=== PATIENT | male | born 1980 | race Caucasian/White ===

== ENCOUNTER 2017-06-20 19:16 | Emergency (ER) | payer MEDICAID ==
[~2017-06-20] VITALS: Ht 182.8 cm; Wt 79.4 kg
[~2017-06-20 19:16] MED LIST: AMOXICILLIN500 M2 PO; ANAPROX DS550 MG PO; BACTRIM DS 8001 TA1 PO; BENADRYL50 MG PO; CEPHALEXIN500 M1 PO; CIPRO500 MG PO; CLEOCIN150 MG PO; CLINDAMYCIN HC300 MG PO; HYDROCODONE BIT1 T11 PO; MEDROL DOSEPAK4 MG PO; Motrin,Rufen800 MG PO; NAPROSYN500 MG PO; NORCO 5-325 TA1 EACH PO; TRAMADOL HCL50 MG PO; ULTRAM50 MG PO; VICODIN ES 7501 TAB PO; VOLTAREN50 M1 PO
[2017-06-20 20:05] LABS: HEMATOCRIT 39.5 % (42.0-52.0); HEMOGLOBIN 13.6 g/dl (14.0-18.0); MEAN CELL VOLUME 91.9 fl (80.0-94.0); MEAN CORPUSCULAR HGB 31.6 pg (27.0-31.0); MEAN CORPUSCULAR HGB CONC 34.4 g/dl (33.0-37.0); MEAN PLATELET VOLUME 9.2 fl (9.6-12.3); PLATELET COUNT AUTOMATED 249 10*3/uL (130-400); RED CELL DISTRI WIDTH 11.7 % (0-14.5); WHITE BLOOD COUNT 25.1 10*3/uL (4.8-10.8)
[2017-06-20 20:20] LABS: ALBUMIN 3.7 gm/dl (3.1-4.5); ALKALINE PHOSPHATASE 88 U/L (45-117); BILIRUBIN, TOTAL 0.5 mg/dl (0.2-1.0); BUN 13 mg/dl (7-24); CARBON DIOXIDE 25 mmol/L (21-32); CHLORIDE 98 mmol/L (98-107); EST GLOM FILT AFRICAN AMERICAN > 60 ml/min; GLUCOSE 142 mg/dL (65-99); POTASSIUM 3.8 mmol/L (3.5-5.1); SGOT/AST 14 IU/L (3-35); SGPT/ALT 15 U/L (12-78); SODIUM 132 mmol/L (136-145); TOTAL PROTEIN 8.3 gm/dL (6.4-8.2)
[2017-06-20 20:29] LABS: BASOPHIL # 0.3 10*3/uL (0-0.1); BASOPHILS 1 % (0-1); LYMPHOCYTE # 1.3 10*3/uL (1.3-4.4); NEUTROPHIL # 22.6 10*3/uL (2.3-7.9); NEUTROPHILS 90 % (47-73); PLATELET SUFFICIENCY NORMAL (NORMAL); TOTAL CELLS COUNTED 100 #CELLS
[2017-06-20] MEDS ORDERED: NAPROSYN500 MG PO (20:57)
[2017-06-20] MEDS ORDERED: CYCLOBENZAPRINE10 MG PO (20:57)
[2017-06-20] MEDS ORDERED: ZITHROMAX250 MG PO (20:57)
== END 2017-06-20 23:54 | disposition home or self-care (01) ==
LOC: ED 19:16
PROVIDERS: Nurse Practitioner Family
DX: S29.011A Strain of muscle and tendon of front wall of thorax, initial encounter (principal); J18.1 Lobar pneumonia, unspecified organism; F17.200 Nicotine dependence, unspecified, uncomplicated; X58.XXXA Exposure to other specified factors, initial encounter; Y93.9 Activity, unspecified; Y92.9 Unspecified place or not applicable; Y99.9 Unspecified external cause status

== ENCOUNTER 2019-09-02 11:10 | Emergency (ER) | payer SELFPAY ==
[~2019-09-02] VITALS: Ht 182.8 cm; Wt 77.1 kg
[~2019-09-02 11:10] MED LIST changes: +CYCLOBENZAPRINE10 MG PO; +ZITHROMAX250 MG PO
[2019-09-02 12:11] LABS: BASO # 0.1 10*3/uL (0.0-0.1); BASO % 0.4 % (0.0-1.0); EOS # 0.2 10*3/uL (0.0-0.4); HEMATOCRIT 36.8 % (42.0-52.0); HEMOGLOBIN 12.5 g/dl (14.0-18.0); LYMPH # 2.4 10*3/uL (1.3-4.4); LYMPH % 19.4 % (27.0-41.0); MEAN CELL VOLUME 94.6 fl (80.0-94.0); MEAN CORPUSCULAR HGB 32.1 pg (27.0-31.0); MEAN PLATELET VOLUME 9.6 fl (9.6-12.3); MONO # 1.1 10*3/uL (0.1-1.0); MONO % 8.8 % (3.0-9.0); NEUT # 8.4 10*3/uL (2.3-7.9); NEUT % 69.1 % (47.0-73.0); PLATELET COUNT AUTOMATED 277 10*3/uL (130-400); RED BLOOD COUNT 3.89 10*6/uL (4.50-5.90); RED CELL DISTRI WIDTH 14.1 % (0-14.5); WHITE BLOOD COUNT 12.1 10*3/uL (4.8-10.8)
[2019-09-02 12:26] LABS: ALBUMIN 3.1 gm/dl (3.1-4.5); ALKALINE PHOSPHATASE 78 U/L (45-117); BUN 25 mg/dl (7-24); CHLORIDE 99 mmol/L (98-107); CREATININE 0.87 mg/dL (0.70-1.30); POTASSIUM 3.6 mmol/L (3.5-5.1); SGOT/AST 66 IU/L (3-35); SGPT/ALT 68 U/L (12-78); SODIUM 133 mmol/L (136-145); TOTAL PROTEIN 7.4 gm/dL (6.4-8.2)
[2019-09-02] MEDS ORDERED: NAPROSYN500 MG PO (13:11)
[2019-09-02] MEDS ORDERED: CEPHALEXIN500 M1 PO (13:11)
== END 2019-09-02 13:17 | disposition home or self-care (01) ==
LOC: ED 11:10
PROVIDERS: Nurse Practitioner Family
DX: L03.114 Cellulitis of left upper limb (principal); Z79.2 Long term (current) use of antibiotics; Z79.899 Other long term (current) drug therapy; W10.8XXA Fall (on) (from) other stairs and steps, initial encounter; Y93.89 Activity, other specified; Y92.89 Other specified places as the place of occurrence of the external cause; Y99.8 Other external cause status

== ENCOUNTER → 2020-08-12 | Outpatient (CLI) | payer OTHER | END | disposition home or self-care (01) | LOC: COVID19 00:30 | PROVIDERS: ATTEND Student in an Organized Health Care Education/Training Program | DX: Z20.828 Contact with and (suspected) exposure to other viral communicable diseases (principal) ==

== ENCOUNTER 2020-08-25 15:04 | Emergency (ER) | payer OTHER ==
[~2020-08-25] VITALS: Ht 182.8 cm; Wt 77.1 kg
[2020-08-25] MEDS ORDERED: Motrin,Rufen800 MG PO (17:40)
== END 2020-08-25 17:48 | disposition home or self-care (01) ==
LOC: ED 15:04
DX: S66.911A Strain of unspecified muscle, fascia and tendon at wrist and hand level, right hand, initial encounter (principal); F17.200 Nicotine dependence, unspecified, uncomplicated; Z79.899 Other long term (current) drug therapy; X58.XXXA Exposure to other specified factors, initial encounter; Y93.89 Activity, other specified; Y92.89 Other specified places as the place of occurrence of the external cause; Y99.8 Other external cause status

== ENCOUNTER 2020-09-03 11:00 | Emergency (ER) | payer OTHER ==
[~2020-09-03] VITALS: Wt 77.1 kg
[2020-09-03] MEDS ORDERED: BUPRENORPHIN-NALOXON PO (11:10)
[2020-09-03 11:32] LABS: BASO # 0.1 10*3/uL (0.0-0.1); BASO % 0.6 % (0.0-1.0); EOS # 0.5 10*3/uL (0.0-0.4); EOS % 5.2 % (1.0-4.0); HEMATOCRIT 38.4 % (42.0-52.0); LYMPH # 2.7 10*3/uL (1.3-4.4); LYMPH % 31.2 % (27.0-41.0); MEAN CELL VOLUME 92.1 fl (80.0-94.0); MEAN CORPUSCULAR HGB 30.7 pg (27.0-31.0); MEAN CORPUSCULAR HGB CONC 33.3 g/dl (33.0-37.0); MEAN PLATELET VOLUME 9.8 fl (9.6-12.3); MONO # 0.5 10*3/uL (0.1-1.0); MONO % 5.6 % (3.0-9.0); NEUT % 57.3 % (47.0-73.0); PLATELET COUNT AUTOMATED 266 10*3/uL (130-400); RED BLOOD COUNT 4.17 10*6/uL (4.50-5.90); RED CELL DISTRI WIDTH 12.1 % (0-14.5); WHITE BLOOD COUNT 8.7 10*3/uL (4.8-10.8)
[2020-09-03 11:47] LABS: ALBUMIN 3.7 gm/dl (3.1-4.5); ALKALINE PHOSPHATASE 74 U/L (45-117); BUN 21 mg/dl (7-24); CHLORIDE 105 mmol/L (98-107); CREATININE 1.16 mg/dL (0.70-1.30); LIPASE 64 U/L (73-393); POTASSIUM 4.1 mmol/L (3.5-5.1); SGOT/AST 18 IU/L (3-35); SGPT/ALT 17 U/L (12-78); SODIUM 140 mmol/L (136-145); TOTAL PROTEIN 7.8 gm/dL (6.4-8.2)
[2020-09-03 12:24] LABS: BILIRUBIN 1+ (Negative); BLOOD Negative (Negative); CLARITY Clear (Clear); COLOR Dark Yellow (Yellow); GLUCOSE Negative (Negative); KETONE Trace (Negative); LEUKO ESTERASE Negative (Negative); NITRITE Negative (Negative); SPECIFIC GRAVITY >= 1.030 (1.001-1.030)
[2020-09-03 12:46] LABS: BACTERIA 1+; WBC 0-2 wbc/hpf (0-5)
[2020-09-03 12:47] LABS: MUCOUS 3+
[2020-09-03] MEDS ORDERED: PROTONIX40 MG PO ×2 (13:08)
== END 2020-09-03 13:12 | disposition home or self-care (01) ==
LOC: ED 11:00
PROVIDERS: Nurse Practitioner Family
DX: K21.9 Gastro-esophageal reflux disease without esophagitis (principal); Z79.899 Other long term (current) drug therapy

== ENCOUNTER 2020-11-06 00:17 | Emergency (ER) | payer OTHER ==
[~2020-11-06] VITALS: Ht 182.8 cm; Wt 74.8 kg
[~2020-11-06 00:17] MED LIST changes: +BUPRENORPHIN-NALOXON PO; +PROTONIX40 MG PO
[2020-11-06] MEDS ORDERED: CLINDAMYCIN HC300 MG PO (01:48)
[2020-11-06] MEDS ORDERED: PREDNISONE20 M1 PO (01:48)
== END 2020-11-06 01:59 | disposition home or self-care (01) ==
LOC: ED 00:17
DX: T78.3XXA Angioneurotic edema, initial encounter (principal)

== ENCOUNTER 2021-02-09 14:43 | Emergency (ER) | payer OTHER ==
[~2021-02-09] VITALS: Ht 182.8 cm; Wt 79.4 kg
[~2021-02-09 14:43] MED LIST changes: +PREDNISONE20 M1 PO
== END 2021-02-09 16:25 | disposition left against medical advice (07) ==
LOC: ED 14:43
DX: L02.414 Cutaneous abscess of left upper limb (principal); F11.10 Opioid abuse, uncomplicated; F17.200 Nicotine dependence, unspecified, uncomplicated; L03.114 Cellulitis of left upper limb; Z79.899 Other long term (current) drug therapy; Z98.890 Other specified postprocedural states; Z53.29 Procedure and treatment not carried out because of patient's decision for other reasons

== ENCOUNTER 2021-07-30 23:44 | Inpatient (IN) | payer OTHER ==
[~2021-07-30] VITALS: Ht 182.9 cm; Wt 85.4 kg
[2021-07-30 23:45] VITALS: BP 142/88
[2021-07-31] VITALS (12 sets, daily range): BP systolic 118–148; BP diastolic 70–83
[2021-07-31 00:54] LABS: HEMATOCRIT 41.3 % (42.0-52.0); MEAN CELL VOLUME 89.8 fl (80.0-94.0); MEAN CORPUSCULAR HGB 31.3 pg (27.0-31.0); MEAN CORPUSCULAR HGB CONC 34.9 g/dl (33.0-37.0); MEAN PLATELET VOLUME 10.5 fl (9.6-12.3); PLATELET COUNT AUTOMATED 252 10*3/uL (130-400)
[2021-07-31 01:04] LABS: ABG BASE EXCESS -17.6 mmol/L (-2.0-2.0)
[2021-07-31 01:05] LABS: ARTERIAL BLOOD GAS PH 7.065 (7.35-7.45)
[2021-07-31 01:10] LABS: PLATELET SUFFICIENCY NORMAL (NORMAL); TOTAL CELLS COUNTED 100 #CELLS
[2021-07-31 01:11] LABS: ARTERIAL BLOOD GAS PO2 33.1 (80-90)
[2021-07-31 01:13] LABS: ALBUMIN 3.6 gm/dl (3.1-4.5); ALKALINE PHOSPHATASE 68 U/L (45-117); BUN 149 mg/dl (7-24); CHLORIDE 78 mmol/L (98-107); LIPASE 100 U/L (73-393); SGOT/AST 630 IU/L (3-35); SGPT/ALT 136 U/L (12-78); TOTAL PROTEIN 7.8 gm/dL (6.4-8.2)
[2021-07-31 01:14] LABS: POTASSIUM 7.3 mmol/L (3.5-5.1); TROPONIN I 0.088 ng/ml (<0.045)
[2021-07-31 01:17] LABS: SODIUM 113 mmol/L (136-145)
[2021-07-31 02:27] LABS: BILIRUBIN Negative (Negative); BLOOD 3+ (Negative); CLARITY Cloudy (Clear); COLOR Yellow (Yellow); GLUCOSE Negative (Negative); KETONE Negative (Negative); LEUKO ESTERASE Negative (Negative); NITRITE Negative (Negative); UROBILINOGEN 0.2 E.U./dl (0.0-1.0)
[2021-07-31 02:35] LABS: BACTERIA 2+; URINE AMPHETAMINES > 1000 (1000ng/ml); URINE BARBITURATES < 200 (200ng/ml); URINE BENZODIAZEPINES < 200 (200ng/ml); URINE CANNABINOIDS (THC) < 50 (50ng/ml); URINE COCAINE > 300 (300ng/ml); URINE METHADONE < 300 (300ng/ml); URINE OPIATES > 300 (300ng/ml)
[2021-07-31 02:37] LABS: URINE PHENCYCLIDINE < 25 (25ng/ml); WBC 16-20 wbc/hpf (0-5)
[2021-07-31 02:59] LABS: CPK 76720 U/L (39-308)
[2021-07-31 03:41] LABS: BUN 149 mg/dl (7-24); CHLORIDE 84 mmol/L (98-107); CREATININE 9.69 mg/dL (0.70-1.30); SODIUM 120 mmol/L (136-145)
[2021-07-31 03:43] LABS: POTASSIUM 6.2 mmol/L (3.5-5.1)
[2021-07-31 04:30] LABS: ABG BASE EXCESS -10.6 mmol/L (-2.0-2.0); ARTERIAL BLOOD GAS PH 7.256 (7.35-7.45); ARTERIAL BLOOD GAS PO2 55.6 (80-90)
[2021-07-31 07:23] LABS: HEMATOCRIT 37.6 % (42.0-52.0); MEAN CELL VOLUME 87.9 fl (80.0-94.0); MEAN CORPUSCULAR HGB 31.3 pg (27.0-31.0); MEAN CORPUSCULAR HGB CONC 35.6 g/dl (33.0-37.0); MEAN PLATELET VOLUME 10.7 fl (9.6-12.3); PLATELET COUNT AUTOMATED 188 10*3/uL (130-400); RED BLOOD COUNT 4.28 10*6/uL (4.50-5.90); RED CELL DISTRI WIDTH 13.1 % (0-14.5); WHITE BLOOD COUNT 7.6 10*3/uL (4.8-10.8)
[2021-07-31 07:55] LABS: ALKALINE PHOSPHATASE 57 U/L (45-117); CHLORIDE 85 mmol/L (98-107); CREATININE 8.47 mg/dL (0.70-1.30); POTASSIUM 5.3 mmol/L (3.5-5.1); SGOT/AST 465 IU/L (3-35); SGPT/ALT 117 U/L (12-78); SODIUM 121 mmol/L (136-145); TOTAL PROTEIN 6.9 gm/dL (6.4-8.2)
[2021-07-31 08:04] LABS: BURR CELLS MANY; PLATELET SUFFICIENCY NORMAL (NORMAL); TOTAL CELLS COUNTED 100 #CELLS
[2021-07-31 08:45] LABS: BUN 139 mg/dl (7-24)
[2021-07-31] MEDS ORDERED: PRILOSEC20 M1 PO (09:51)
[2021-07-31 14:35] LABS: ALBUMIN 2.9 gm/dl (3.1-4.5); CREATININE 4.63 mg/dL (0.70-1.30); POTASSIUM 4.6 mmol/L (3.5-5.1); TOTAL PROTEIN 6.8 gm/dL (6.4-8.2)
[2021-07-31 20:51] LABS: ALBUMIN 2.8 gm/dl (3.1-4.5); CREATININE 3.13 mg/dL (0.70-1.30); POTASSIUM 4.5 mmol/L (3.5-5.1); TOTAL PROTEIN 6.7 gm/dL (6.4-8.2)
[2021-08-01] VITALS: BP 121/55
[2021-08-01 01:34] LABS: ALBUMIN 2.7 gm/dl (3.1-4.5); CREATININE 2.33 mg/dL (0.70-1.30); POTASSIUM 4.3 mmol/L (3.5-5.1); TOTAL PROTEIN 6.7 gm/dL (6.4-8.2)
[2021-08-01 04:00] VITALS: BP 121/52
[2021-08-01 06:13] LABS: HEMATOCRIT 36.1 % (42.0-52.0); MEAN CELL VOLUME 88.5 fl (80.0-94.0); MEAN CORPUSCULAR HGB 31.4 pg (27.0-31.0); MEAN CORPUSCULAR HGB CONC 35.5 g/dl (33.0-37.0); MEAN PLATELET VOLUME 10.8 fl (9.6-12.3); PLATELET COUNT AUTOMATED 173 10*3/uL (130-400); RED BLOOD COUNT 4.08 10*6/uL (4.50-5.90); RED CELL DISTRI WIDTH 13.2 % (0-14.5); WHITE BLOOD COUNT 8.1 10*3/uL (4.8-10.8)
[2021-08-01 06:33] LABS: ALBUMIN 2.7 gm/dl (3.1-4.5); CREATININE 1.73 mg/dL (0.70-1.30); POTASSIUM 4.1 mmol/L (3.5-5.1); TOTAL PROTEIN 6.5 gm/dL (6.4-8.2)
[2021-08-01 08:00] VITALS: BP 137/66
[2021-08-01 08:28] LABS: PLATELET SUFFICIENCY NORMAL (NORMAL); TOTAL CELLS COUNTED 100 #CELLS
[2021-08-01 09:06] LABS: HEP B CORE AB TOTAL Positive (Negative); HEPATITIS B SURFACE AB Reactive (.); HEPATITIS B SURFACE AG Negative (Negative)
[2021-08-01 12:00] VITALS: BP 136/77
[2021-08-01 16:00] VITALS: BP 139/61
[2021-08-01 20:00] VITALS: BP 122/59
[2021-08-02] VITALS: BP 130/70
[2021-08-02 04:00] VITALS: BP 127/66
[2021-08-02 06:33] LABS: HEMATOCRIT 34.4 % (42.0-52.0); MEAN CORPUSCULAR HGB 30.9 pg (27.0-31.0); MEAN CORPUSCULAR HGB CONC 35.2 g/dl (33.0-37.0); MEAN PLATELET VOLUME 10.5 fl (9.6-12.3); PLATELET COUNT AUTOMATED 147 10*3/uL (130-400); RED BLOOD COUNT 3.91 10*6/uL (4.50-5.90); RED CELL DISTRI WIDTH 12.6 % (0-14.5); WHITE BLOOD COUNT 9.3 10*3/uL (4.8-10.8)
[2021-08-02 06:41] LABS: ALBUMIN 2.5 gm/dl (3.1-4.5); CHLORIDE 92 mmol/L (98-107); SODIUM 124 mmol/L (136-145)
[2021-08-02 06:57] LABS: ALKALINE PHOSPHATASE 53 U/L (45-117); BUN 23 mg/dl (7-24); CPK 3441 U/L (39-308); CREATININE 0.74 mg/dL (0.70-1.30); SGOT/AST 158 IU/L (3-35); SGPT/ALT 85 U/L (12-78); TOTAL PROTEIN 6.4 gm/dL (6.4-8.2)
[2021-08-02 07:44] LABS: TOTAL CELLS COUNTED 100 #CELLS
[2021-08-02 07:45] LABS: PLATELET SUFFICIENCY NORMAL (NORMAL)
[2021-08-02 08:00] VITALS: BP 138/69
[2021-08-02 12:00] VITALS: BP 130/64
[2021-08-02] MEDS ORDERED: VITAMIN D250 MCG PO (13:55)
== END 2021-08-02 17:21 | disposition home or self-care (01) | DRG 812 ==
LOC: ED 23:44 → EDHOLD 07-31 06:40 → ICCU 07-31 06:40
PROVIDERS: Emergency Medicine; Family Medicine; Hospitalist; Internal Medicine; Internal Medicine Nephrology; ADMIT Emergency Medicine; ATTEND Emergency Medicine
PROC: 02HV33Z Insertion of Infusion Device into Superior Vena Cava, Percutaneous Approach (ICD-10-PCS; principal; 2021-07-31)
PROC: B548ZZA Ultrasonography of Superior Vena Cava, Guidance (ICD-10-PCS; 2021-07-31)
PROC: 02HV33Z Insertion of Infusion Device into Superior Vena Cava, Percutaneous Approach (ICD-10-PCS; 2021-07-31)
PROC: 5A1D70Z Performance of Urinary Filtration, Intermittent, Less than 6 Hours Per Day (ICD-10-PCS; 2021-07-31)
DX: T40.601A Poisoning by unspecified narcotics, accidental (unintentional), initial encounter (principal); N17.0 Acute kidney failure with tubular necrosis; M62.82 Rhabdomyolysis; E87.2 Acidosis; T40.5X1A Poisoning by cocaine, accidental (unintentional), initial encounter; E83.52 Hypercalcemia; E44.0 Moderate protein-calorie malnutrition; R82.71 Bacteriuria; Z68.25 Body mass index [BMI] 25.0-25.9, adult; K21.9 Gastro-esophageal reflux disease without esophagitis; Y92.89 Other specified places as the place of occurrence of the external cause; E83.39 Other disorders of phosphorus metabolism; R74.01 Elevation of levels of liver transaminase levels; F12.90 Cannabis use, unspecified, uncomplicated; E87.5 Hyperkalemia; F15.10 Other stimulant abuse, uncomplicated; E83.51 Hypocalcemia; E87.1 Hypo-osmolality and hyponatremia; F11.10 Opioid abuse, uncomplicated; R31.9 Hematuria, unspecified; D64.9 Anemia, unspecified; R73.9 Hyperglycemia, unspecified; E87.8 Other disorders of electrolyte and fluid balance, not elsewhere classified; R65.11 Systemic inflammatory response syndrome (SIRS) of non-infectious origin with acute organ dysfunction

== ENCOUNTER 2021-08-07 21:38 | Emergency (ER) | payer OTHER ==
[~2021-08-07 21:38] MED LIST changes: +PRILOSEC20 M1 PO; +VITAMIN D250 MCG PO
[2021-08-07 23:17] LABS: BASO % 0.2 % (0.0-1.0); EOS # 0.2 10*3/uL (0.0-0.4); HEMATOCRIT 29.9 % (42.0-52.0); LYMPH # 1.6 10*3/uL (1.3-4.4); LYMPH % 9.2 % (27.0-41.0); MEAN CELL VOLUME 93.4 fl (80.0-94.0); MEAN CORPUSCULAR HGB 31.3 pg (27.0-31.0); MEAN CORPUSCULAR HGB CONC 33.4 g/dl (33.0-37.0); MEAN PLATELET VOLUME 9.3 fl (9.6-12.3); MONO # 1.1 10*3/uL (0.1-1.0); MONO % 6.1 % (3.0-9.0); NEUT # 14.6 10*3/uL (2.3-7.9); NEUT % 82.9 % (47.0-73.0); PLATELET COUNT AUTOMATED 385 10*3/uL (130-400); RED CELL DISTRI WIDTH 12.7 % (0-14.5); WHITE BLOOD COUNT 17.6 10*3/uL (4.8-10.8)
[2021-08-07 23:32] LABS: ALBUMIN 2.5 gm/dl (3.1-4.5); ALKALINE PHOSPHATASE 66 U/L (45-117); BUN 15 mg/dl (7-24); CHLORIDE 100 mmol/L (98-107); CREATININE 0.87 mg/dL (0.70-1.30); POTASSIUM 3.8 mmol/L (3.5-5.1); SGOT/AST 55 IU/L (3-35); SGPT/ALT 73 U/L (12-78); SODIUM 133 mmol/L (136-145); TOTAL PROTEIN 6.4 gm/dL (6.4-8.2)
[2021-08-07 23:58] LABS: BILIRUBIN Negative (Negative); BLOOD 3+ (Negative); CLARITY Clear (Clear); COLOR Yellow (Yellow); GLUCOSE Negative (Negative); KETONE Negative (Negative); LEUKO ESTERASE Negative (Negative); NITRITE Negative (Negative); PH 5.5 (4.5-8.0); UROBILINOGEN 0.2 E.U./dl (0.0-1.0)
[2021-08-08 00:06] LABS: RBC 21-30 rbc/hpf (0-2); WBC 0-2 wbc/hpf (0-5)
[2021-08-08 00:07] LABS: BACTERIA TRACE
[2021-08-08] MEDS ORDERED: SEPTDS PO ×2 (00:12→14:54)
== END 2021-08-08 00:42 | disposition home or self-care (01) ==
LOC: ED 21:38
PROVIDERS: Physician Assistant
DX: L03.116 Cellulitis of left lower limb (principal); Z79.899 Other long term (current) drug therapy

== ENCOUNTER 2022-08-18 23:36 | Emergency (ER) | payer OTHER ==
[~2022-08-18] VITALS: Ht 182.8 cm; Wt 79.4 kg
[~2022-08-18 23:36] MED LIST changes: +SEPTDS PO
[2022-08-18] MEDS ORDERED: BUPRENORPHINE-1 EAC1 SL (23:56)
== END 2022-08-19 00:30 | disposition left against medical advice (07) ==
LOC: ED 23:36
DX: L02.818 Cutaneous abscess of other sites (principal); Z53.21 Procedure and treatment not carried out due to patient leaving prior to being seen by health care provider

== ENCOUNTER 2022-08-20 23:29 | Emergency (ER) | payer OTHER ==
[~2022-08-20] VITALS: Ht 182.8 cm; Wt 79.4 kg
[~2022-08-20 23:29] MED LIST changes: +BUPRENORPHINE-1 EAC1 SL
[2022-08-21 00:56] LABS: BASO % 0.4 % (0.0-1.0); EOS # 0.4 10*3/uL (0.0-0.4); EOS % 5.5 % (1.0-4.0); HEMATOCRIT 34.2 % (42.0-52.0); LYMPH # 2.2 10*3/uL (1.3-4.4); MEAN CELL VOLUME 88.8 fl (80.0-94.0); MEAN CORPUSCULAR HGB 29.4 pg (27.0-31.0); MEAN PLATELET VOLUME 9.5 fl (9.6-12.3); MONO # 0.5 10*3/uL (0.1-1.0); MONO % 6.9 % (3.0-9.0); NEUT # 4.5 10*3/uL (2.3-7.9); NEUT % 58.9 % (47.0-73.0); PLATELET COUNT AUTOMATED 295 10*3/uL (130-400); RED BLOOD COUNT 3.85 10*6/uL (4.50-5.90); RED CELL DISTRI WIDTH 13.7 % (0-14.5); WHITE BLOOD COUNT 7.7 10*3/uL (4.8-10.8)
[2022-08-21 01:11] LABS: ALKALINE PHOSPHATASE 75 U/L (45-117); BUN 17 mg/dl (7-24); CHLORIDE 104 mmol/L (98-107); POTASSIUM 4.3 mmol/L (3.5-5.1); SGOT/AST 17 IU/L (3-35); SGPT/ALT 19 U/L (12-78); SODIUM 137 mmol/L (136-145); TOTAL PROTEIN 7.2 gm/dL (6.4-8.2)
[2022-08-21] MEDS ORDERED: SEPTDS PO (03:52)
[2022-08-21] MEDS ORDERED: CEPHALEXIN500 M1 PO (03:52)
== END 2022-08-21 04:09 | disposition home or self-care (01) ==
LOC: ED 23:29
PROVIDERS: Emergency Medicine
DX: L02.213 Cutaneous abscess of chest wall (principal); K21.9 Gastro-esophageal reflux disease without esophagitis; Z79.899 Other long term (current) drug therapy

== ENCOUNTER 2022-11-13 18:29 | Emergency (ER) | payer OTHER ==
[~2022-11-13] VITALS: Ht 182.8 cm; Wt 79.4 kg
[~2022-11-13 18:29] MED LIST changes: +VIBRAMYCIN100 MG PO
[2022-11-13 19:30] LABS: BASO % 0.6 % (0.0-1.0); EOS # 0.4 10*3/uL (0.0-0.4); EOS % 6.5 % (1.0-4.0); HEMATOCRIT 34.3 % (42.0-52.0); LYMPH # 2.8 10*3/uL (1.3-4.4); LYMPH % 41.1 % (27.0-41.0); MEAN CELL VOLUME 87.9 fl (80.0-94.0); MEAN CORPUSCULAR HGB 29.2 pg (27.0-31.0); MEAN CORPUSCULAR HGB CONC 33.2 g/dl (33.0-37.0); MEAN PLATELET VOLUME 9.1 fl (9.6-12.3); MONO # 0.6 10*3/uL (0.1-1.0); MONO % 8.9 % (3.0-9.0); NEUT # 2.9 10*3/uL (2.3-7.9); NEUT % 42.8 % (47.0-73.0); PLATELET COUNT AUTOMATED 319 10*3/uL (130-400); RED CELL DISTRI WIDTH 13.2 % (0-14.5); WHITE BLOOD COUNT 6.8 10*3/uL (4.8-10.8)
[2022-11-13 19:46] LABS: ALKALINE PHOSPHATASE 72 U/L (46-116); BUN 17 mg/dl (9-23); CHLORIDE 104 mmol/L (98-107); POTASSIUM 4.1 mmol/L (3.4-5.1); SGPT/ALT 12 U/L (10-49); TOTAL PROTEIN 7.1 gm/dL (6.0-8.0)
[2022-11-13] MEDS ORDERED: CYCLOBENZAPRINE5 M3 PO (20:42)
== END 2022-11-13 21:59 | disposition home or self-care (01) ==
LOC: ED 18:29
PROVIDERS: Physician Assistant
DX: L03.113 Cellulitis of right upper limb (principal); Z90.89 Acquired absence of other organs; F12.10 Cannabis abuse, uncomplicated; F19.10 Other psychoactive substance abuse, uncomplicated; F10.90 Alcohol use, unspecified, uncomplicated

== ENCOUNTER 2024-11-25 13:23 | Emergency (ER) | payer OTHER ==
[~2024-11-25] VITALS: Ht 182.8 cm; Wt 79.4 kg
[~2024-11-25 13:23] MED LIST changes: +CYCLOBENZAPRINE5 M3 PO
[2024-11-25] MEDS ORDERED: SEPTDS PO (14:14)
== END 2024-11-25 16:07 | disposition home or self-care (01) ==
LOC: ED 13:23
DX: S16.1XXA Strain of muscle, fascia and tendon at neck level, initial encounter (principal); L03.031 Cellulitis of right toe; F19.10 Other psychoactive substance abuse, uncomplicated; F12.90 Cannabis use, unspecified, uncomplicated; F15.90 Other stimulant use, unspecified, uncomplicated; Z98.890 Other specified postprocedural states; W18.09XA Striking against other object with subsequent fall, initial encounter; Y93.89 Activity, other specified; Y92.009 Unspecified place in unspecified non-institutional (private) residence as the place of occurrence of the external cause; Y99.8 Other external cause status